=== PATIENT | female | born 1970 | race Caucasian/White ===

== ENCOUNTER 2022-05-19 22:22 | Emergency (ER) | payer MEDICAID, OTHER ==
[~2022-05-19] VITALS: Ht 167.6 cm; Wt 91.0 kg
[2022-05-20 01:06] VITALS: BP 125/71
[2022-05-20 01:25] LABS: Urine Bacteria NONE SEEN /hpf (None Seen); Urine Blood Negative /uL (Negative); Urine Mucus FEW (None Seen); Urine Specific Gravity 1.014 (1.001-1.035); Urine WBC 1 /hpf (0 - 5)
== END 2022-05-20 01:53 | disposition left against medical advice (07) ==
LOC: ER 22:22
DX: R53.1 Weakness (principal); Z53.21 Procedure and treatment not carried out due to patient leaving prior to being seen by health care provider
CPT/HCPCS: 81001

== ENCOUNTER 2023-07-15 16:23 | Emergency (ER) | payer MEDICAID ==
[~2023-07-15] VITALS: Ht 162.6 cm; Wt 98.2 kg
[2023-07-15 17:21] VITALS: BP 146/77; PULSE 87; RESP 20; TEMP 97.2; O2SAT 96
[2023-07-15] MEDS ORDERED: ACET-1080 PO (17:41)
== END 2023-07-15 17:42 | disposition home or self-care (01) ==
LOC: ER 16:23
DX: S81.011A Laceration without foreign body, right knee, initial encounter (principal); F17.210 Nicotine dependence, cigarettes, uncomplicated; Z98.890 Other specified postprocedural states; W22.8XXA Striking against or struck by other objects, initial encounter; Y93.89 Activity, other specified; Y92.89 Other specified places as the place of occurrence of the external cause; Y99.8 Other external cause status
CPT/HCPCS: 12001

== ENCOUNTER 2023-10-12 18:01 | Emergency (ER) | payer MEDICAID ==
[~2023-10-12] VITALS: Ht 162.6 cm; Wt 96.2 kg
[~2023-10-12 18:01] MED LIST: ACET-1080 PO
[2023-10-12 18:20] VITALS: BP 171/81; PULSE 96; RESP 18; O2SAT 96
[2023-10-13] MEDS ORDERED: IBUP-1456 PO (13:37)
[2023-10-13] MEDS ORDERED: CEPH500C PO (13:37)
== END 2023-10-13 03:48 | disposition left against medical advice (07) ==
LOC: ER 18:01
DX: L02.01 Cutaneous abscess of face (principal); Z53.21 Procedure and treatment not carried out due to patient leaving prior to being seen by health care provider

== ENCOUNTER 2023-10-13 12:03 | Emergency (ER) | payer MEDICAID ==
[~2023-10-13] VITALS: Ht 162.6 cm; Wt 96.1 kg
[2023-10-13] MEDS ORDERED: cefTRIAXone SOD 1,000 MG VL ONE (13:25)
[2023-10-13] MEDS ORDERED: cefTRIAXone SOD 1,000 MG VL IM ONE (13:30)
[2023-10-13] MEDS ORDERED: CEPH500C PO (13:37)
[2023-10-13] MEDS ORDERED: IBUP-1456 PO (13:37)
[2023-10-13 13:50] VITALS: BP 155/58; PULSE 78; RESP 14; O2SAT 96
== END 2023-10-13 13:53 | disposition home or self-care (01) ==
LOC: ER 12:03
DX: L72.0 Epidermal cyst (principal); R22.0 Localized swelling, mass and lump, head; F17.210 Nicotine dependence, cigarettes, uncomplicated
CPT/HCPCS: 96372; 99283; J0696

== ENCOUNTER 2024-05-12 20:56 | Emergency (ER) | payer MEDICAID ==
[~2024-05-12] VITALS: Ht 162.6 cm; Wt 94.7 kg
[~2024-05-12 20:56] MED LIST changes: +CEPH500C PO; +IBUP-1456 PO
[2024-05-12] MEDS: HYDROcodone-ACET 10/325MG TAB PO ONE (23:37)
[2024-05-12 23:38] VITALS: BP 123/81; PULSE 86; RESP 19; TEMP 98.5; O2SAT 95
[2024-05-13] MEDS ORDERED: HYDR-4798 PO (00:27)
[2024-05-13] MEDS ORDERED: IBUP-1455 PO (00:27)
[2024-05-13] MEDS ORDERED: MECL25CH20 PO (23:16)
[2024-05-13] MEDS ORDERED: ZOFR4T SL (23:17)
== END 2024-05-13 00:41 | disposition home or self-care (01) ==
LOC: ER 20:56
DX: S16.1XXA Strain of muscle, fascia and tendon at neck level, initial encounter (principal); T81.9XXA Unspecified complication of procedure, initial encounter; F17.210 Nicotine dependence, cigarettes, uncomplicated; W01.0XXA Fall on same level from slipping, tripping and stumbling without subsequent striking against object, initial encounter; Y93.89 Activity, other specified; Y92.89 Other specified places as the place of occurrence of the external cause; Y99.8 Other external cause status
CPT/HCPCS: 72100

== ENCOUNTER 2024-05-13 20:37 | Emergency (ER) | payer MEDICAID ==
[~2024-05-13] VITALS: Ht 162.6 cm; Wt 93.4 kg
[~2024-05-13 20:37] MED LIST changes: +HYDR-4798 PO; +IBUP-1455 PO
[2024-05-13 22:17] LABS: Basophils # (auto) 0 10 ^3/uL (0-0.2); Basophils % (auto) 0.4 % (0.0-2.0); Eosinophils # (auto) 0.3 10 ^3/uL (0-0.8); Eosinophils % (auto) 2.9 % (0.0-7.0); Hematocrit 32.2 % (36.0-46.0); Hemoglobin 10.9 g/dL (12.2-16.2); Lymphocytes # (auto) 2.3 10 ^3/uL (0.4-5.4); Lymphocytes % (auto) 26.4 % (10.0-50.0); Mean Corpuscular Hemoglobin 29.7 pg (28.0-32.0); Mean Corpuscular Hgb Conc. 33.9 g/dL (32.0-36.0); Mean Corpuscular Volume 87.6 fL (80.0-100.0); Monocytes # (auto) 0.7 10 ^3/uL (0-1.3); Monocytes % (auto) 7.7 % (0.0-12.0); Neutrophils # (auto) 5.5 10 ^3/uL (1.6-8.6); Neutrophils % (auto) 62.6 % (37.0-80.0); Nucleated Red Blood Cells % 0.1 %; Red Blood Cells 3.68 10^6/uL (4.0-5.20); Red Cell Distribution Width 16.5 % (11.8-14.3); White Blood Cell 8.8 10^3/uL (4.4-10.8)
[2024-05-13] MEDS: ONDANSETRON HCL 4 MG/2 ML VIAL IM ONE (22:31)
[2024-05-13] MEDS: KETOROLAC TROMETH 60MG/2ML VIAL IM ONE (22:32)
[2024-05-13 22:45] LABS: Alanine Aminotransferase 21 U/L (7-40); Albumin 4.3 g/dL (3.2-4.8); Alkaline Phosphatase 70 U/L (46-116); Anion Gap 7 (5-15); Aspartate Aminotransferase 32 U/L (13-40); BUN/Creatinine Ratio 23.5 (10.0-20.0); Bilirubin, Total 0.2 mg/dL (0.2-1.0); Blood Urea Nitrogen 31 mg/dL (9-23); Calcium 9.7 mg/dL (8.7-10.4); Carbon Dioxide 27 mmol/L (20-30); Chloride 105 mmol/L (98-107); Glucose 94 mg/dL (74-106); Potassium 4.3 mmol/L (3.5-5.1); Sodium 139 mmol/L (136-145)
[2024-05-13] MEDS ORDERED: MECL25CH20 PO (23:16)
[2024-05-13] MEDS ORDERED: ZOFR4T SL (23:17)
[2024-05-13 23:22] LABS: Partial Thromboplastin Time 30.9 SEC (24.5-34.5); Prothrombin Time 10.6 sec (9.3-11.8)
[2024-05-13 23:30] VITALS: BP 99/65; PULSE 87; RESP 18; TEMP 98.9; O2SAT 98
== END 2024-05-13 23:30 | disposition home or self-care (01) ==
LOC: ER 20:37
DX: R51.9 Headache, unspecified (principal); R42 Dizziness and giddiness; R11.2 Nausea with vomiting, unspecified; F17.210 Nicotine dependence, cigarettes, uncomplicated; Z98.890 Other specified postprocedural states; Z79.899 Other long term (current) drug therapy; Z86.2 Personal history of diseases of the blood and blood-forming organs and certain disorders involving the immune mechanism
CPT/HCPCS: 36415; 70450; 71045; 74176; 80053; 82962; 84484; 85025; 85610; 85730; 93005; 96372; 99285; J1885

== ENCOUNTER 2025-02-12 13:24 | Emergency (ER) | payer MEDICAID ==
[~2025-02-12] VITALS: Ht 162.6 cm; Wt 92.4 kg
[~2025-02-12 13:24] MED LIST changes: +MECL25CH20 PO; +ZOFR4T SL
--- NOTE | 2025-02-12 13:42 | ED.PDOC ---
Musculoskeletal HPI Comments 54 year old female presents to the ED with a chief complaint of LT foot pain onset yesterday. Patient was cooking, can of spray oil fell on LT foot. Since then, patient has been experiencing LT foot pain with swelling and redness, pain worsens with walking. Denies any PMHx as well as LOC, head injury, headache, nausea, vomiting, diarrhea, fever, numbness/tingling of extremities. No other symptoms or modifying factors present at this time. Chief Complaint: Lower Extremity Time Seen by MD: 13:37 Primary Care Provider: RACHEL Solis Notes: Medications, Allergies Allergies: Coded Allergies: NO KNOWN ALLERGIES (Unverified , 05/20/22) Home Meds Active Scripts Ibuprofen Micronized (MOTRIN TABLET) 600 Mg Tb, 600 MG PO TID PRN for 3 Days, #9 TAB *Black box warning-NSAIDS can increase risk of [place] & hypertension, GI irritation, ulceration, bleed, perferation. Do not use post cardiac surgery. Use short duration/lowest effective dose. Prov:MARCIA HAZEL MD 02/12/25 Ondansetron Odt 4MG Tab (ZOFRAN PO) 4 Mg Tb, 4 MG SL QIDPRN PRN, #20 TAB ODT TAB-DISSOLVE IN MOUTH, THEN SWALLOW Prov:ABRIL FREY MD 05/13/24 Meclizine Hcl (Meclizine Hcl) 25 Mg Chw, 25 MG PO TIDPRN PRN, #20 TAB.CHEW Prov:ABRIL FREY MD 05/13/24 Hydrocodone-Acetaminophen (Hydrocodone Bitartrate/AC 10-325 mg) 1 Tab Tab, 1 TAB PO Q8HP PRN, #20 TAB Prov:BECKIE GONSALVES PAC 05/13/24 Ibuprofen Micronized (Ibuprofen) 800 Mg Tab, 800 MG PO Q8HP PRN, #20 TAB Prov:BECKIE GONSALVES PAC 05/13/24 Ibuprofen (Ibuprofen) 800 Mg Tab, 1 TAB PO TID, #20 TAB Prov:MARY DUENAS 10/13/23 Cephalexin Monohydrate (Cephalexin) 500 Mg Cap, 1 CAP PO QID, #28 CAP Prov:MARY DUENAS 10/13/23 Acetaminophen (Tylenol 8 Hour Arthritis) 650 Mg Tab, 650 MG PO TID, #24 TAB Prov:MARY DUENAS 07/15/23 Information Source: Patient Mode of Arrival: Ambulatory Location: Left Extremity Location: Foot Timing: Days Prehospital treatment: None Severity: Moderate Able to Move Extremity: Yes Bear Weight: Limited Pain: Moderate Mechanism: Spontaneous Circumstances: Spontaneous Onset of Symptoms: After Trauma Symptoms: Swelling, Pain, Erythema DVT Risk Factors: NONE Associated signs and symptoms: Foot pain Past Medical History PAST MEDICAL HISTORY: Denies Surgical History: Surgical History (Other): RT knee replacement, back surgery OCEAN EXPORT AGENT History: No Pertinent OCEAN EXPORT AGENT History Family History Family History: Reviewed,noncontributory to illness Social History Smoker: Cigarettes Alcohol: Denies ETOH Use Drugs: Marijuana Lives In: Home Constitutional: denies: chills, diaphoresis, fatigue, fever, malaise, sweats, weakness, others EENTM: denies: blurred vision, double vision, ear bleeding, ear discharge, ear drainage, ear pain, ear ringing, eye pain, eye redness, hearing loss, mouth pain, mouth swelling, nasal discharge, nose bleeding, nose congestion, nose pain, photophobia, tearing, throat pain, throat swelling, voice changes, others Respiratory: denies: cough, hemoptysis, orthopnea, SOB at rest, shortness of breath, SOB with excertion, stridor, wheezing, others Cardiovascular: denies: chest pain, dizzy spells, diaphoresis, Dyspnea on exertion, edema, irregular heart beat, left arm pain, lightheadedness, palpitations, PND, syncope, others Gastrointestinal: denies: abdomen distended, abdominal pain, blood streaked bowels, constipated, diarrhea, dysphagia, difficulty swallowing, hematemesis, melena, nausea, poor appetite, poor fluid intake, rectal bleeding, rectal pain, vomiting, others Genitourinary: denies: abnormal vagina bleeding, burning, dyspareunia, dysuria, flank pain, frequency, hematuria, incontinence, pain, , vagina discharge, urgency, others Neurological: denies: dizziness, fainting, headache, left sided numbness, left sided weakness, numbness, paresthesia, pre-existing deficit, right sided numbness, right sided weakness, seizure, speech problems, tingling, tremors, weakness, others Musculoskeletal: reports: others (LT foot pain, swelling, redness); denies: back pain, gout, joint pain, joint swelling, muscle pain, muscle stiffness, neck pain Integumetry: denies: bruises, change in color, change in hair/nails, dryness, laceration, lesions, lumps, rash, wounds, others Allergic/Immunocompromised: denies: Difficulty Healing, Frequent Infections, Hives, Itching, others Hematologic/Lymphatic: denies: anemia, blood clots, easy bleeding, easy bruising, swollen glands, others Endocrine: denies: excessive hunger, excessive sweating, excessive thirst, excessive urination, flushing, intolerance to cold, intolerance to heat, unexpla ined weight gain, unexplained weight loss, others Psychiatric: denies: anxiety, bipolar disorder, depression, hopeless, panic disorder, schizophrenia, sleepless, suicidal, others All Other Systems: Reviewed and Negative Physical Exam General Appearance: Moderate Distress, Normal HEENT: Normal ENT Inspection, Pharynx Normal, TMs Normal Neck: Full Range of Motion, Non-Tender, Normal, Normal Inspection Respiratory: Chest Non-Tender, Lungs Clear, No Accessory Muscle Use, No Respiratory Distress, Normal Breath Sounds Cardiovascular: No Edema, No JVD, No Murmur, No Gallop, Normal Peripheral Pulses, Regular Rate/Rhythm Breast Exam: Deferred Gastrointestinal: No Organomegaly, Non Tender, No Pulsatile Mass, Normal Bowel Sounds, Soft Genitalia: Deferred Pelvic: Deferred Rectal: Deferred Extremities: No calf tenderness, Normal capillary refill, Normal range of motion, Non-tender, No pedal edema, Swelling (Mild swelling of left foot) Musculoskeletal : Apperance: Normal Neurologic: Alert, 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 Was a procedure done?: No Differential Diagnosis EXT Differential Diagnosis: Fracture, Sprain, Strain X-Ray, Labs, Meds, VS Vital Signs Date Time Temp Pulse Resp B/P (MAP) Pulse Ox O2 Delivery O2 Flow Rate FiO2 02/12/25 14:10 18 Room Air* 0 21 02/12/25 13:38 97.6 88 17 141/80 (100) 93 97.6 Current Medications Medications (Trade) Dose Ordered Sig/Seth Route Start Time Stop Time Status Last Admin Acetaminophen/ Hydrocodone Bitart ([place] 10/325MG Tab) 1 tab ONCE ONCE PO 02/12/25 13:45 02/12/25 13:46 DC 02/12/25 14:09 Patient alert. Complaining of left foot pain after object fell. Vitals stable. Answering questions. No sign of distress. Continues to smoke cigarettes. Counseled patient effects of smoking cigarettes 15 minutes. X-ray of the right foot does not show any acute process. Was given [place]. Was given prescription of Motrin. Reviewed her history. Explained to the patient. Was told to follow up with her primary care physician. Was told to come back if there is any problem. Time of 1ST Reevaluation: 14:07 Reevaluation 1ST: Unchanged Patient Education/Counseling: Diagnosis, Treatment, Prognosis Family Education/Counseling: No Family Present Departure 1 Departure Time of Disposition: 13:44 Impression: Primary Impression: Hyperglycemia Additional Impression: Musculoskeletal pain Disposition: 01 HOME / SELF CARE / HOMELESS Condition: Good e-Prescriptions Ibuprofen Micronized (MOTRIN TABLET) 600 Mg Tb 600 MG PO TID PRN for 3 Days, #9 TAB *Black box warning-NSAIDS can increase risk of [place] & hypertension, GI irritation, ulceration, bleed, perferation. Do not use post cardiac surgery. Use short duration/lowest effective dose. Prov: MARCIA HAZEL MD 02/12/25 Discharged With: Self Critical Care Note Critical Care Time?: No Stability Stability form required: No Heart Score Heart Score: Heart Score Response (Comments) Value History N/A 0 EKG N/A 0 Age N/A 0 Risk Factors N/A 0 Troponin N/A 0 Total 0 I personally scribed for MARCIA HAZEL MD ([email or web address]) on 02/12/25 at 13:42. Electronically submitted by Rashmi Mcleod ([email or web address]). MARCIA HAZEL MD Feb 12, 2025 13:42
[2025-02-12] MEDS ORDERED: IBU600T PO (13:45)
[2025-02-12] MEDS: HYDROcodone-ACET 10/325MG TAB PO ONE (14:09)
[2025-02-12 14:10] VITALS: RESP 18
--- NOTE | 2025-02-12 14:13 | DVH ---
EXAM: XY L FOOT 3 VIEW XRAY CLINICAL INDICATION: pain r/o fx TECHNIQUE: XY L FOOT 3 VIEW XRAY Comparison: None FINDINGS/IMPRESSION: There is no evidence of acute fracture or dislocation. The visualized joint space is well maintained. The alignment is anatomical. There is no radiopaque foreign body.
[2025-02-12 14:45] VITALS: BP 143/51; PULSE 89; RESP 18; TEMP 98.4; O2SAT 95
== END 2025-02-12 14:51 | disposition home or self-care (01) ==
LOC: ER 13:24
DX: R73.9 Hyperglycemia, unspecified (principal); M79.18 Myalgia, other site; F12.90 Cannabis use, unspecified, uncomplicated; F17.210 Nicotine dependence, cigarettes, uncomplicated; Z79.1 Long term (current) use of non-steroidal anti-inflammatories (NSAID)
CPT/HCPCS: 73630

== ENCOUNTER 2025-03-17 14:48 | Emergency (ER) | payer MEDICAID ==
[~2025-03-17] VITALS: Ht 162.6 cm; Wt 93.5 kg
[~2025-03-17 14:48] MED LIST changes: +IBU600T PO
--- NOTE | 2025-03-17 15:25 | ED.PDOC ---
History of Present Illness HPI Comments 54-year-old female presents to the ER with prior medical history of DVT on the right leg, prediabetic, sciatica; , right knee replacement, back surgery in the chief complaint of pelvic pain. Patient reports that she tripped over a cord and felt something pull from the pelvic area. Patient reports that she was at work when she started to have sharp pain in the groin area patient notes that she is taking blood thinners as well as not urinated since yesterday. Denies chills, fever, N/V/D, SOB, CP. No other associated symptoms, modifiers, recent injuries or sick contacts present at this time. Chief Complaint: Pelvic Pain Time Seen by MD: 15:10 Primary Care Provider: nafisa Solis Notes: Nurses Notes, Medications, Allergies Allergies: Coded Allergies: NO KNOWN ALLERGIES (Unverified , 05/20/22) Home Meds Active Scripts Ibuprofen Micronized (MOTRIN TABLET) 600 Mg Tb, 600 MG PO TID PRN for 3 Days, #9 TAB *Black box warning-NSAIDS can increase risk of [place] & hypertension, GI irritation, ulceration, bleed, perferation. Do not use post cardiac surgery. Use short duration/lowest effective dose. Prov:MARCIA HAZEL MD 02/12/25 Ondansetron Odt 4MG Tab (ZOFRAN PO) 4 Mg Tb, 4 MG SL QIDPRN PRN, #20 TAB ODT TAB-DISSOLVE IN MOUTH, THEN SWALLOW Prov:ABRIL FREY MD 05/13/24 Meclizine Hcl (Meclizine Hcl) 25 Mg Chw, 25 MG PO TIDPRN PRN, #20 TAB.CHEW Prov:ABRIL FREY MD 05/13/24 Hydrocodone-Acetaminophen (Hydrocodone Bitartrate/AC 10-325 mg) 1 Tab Tab, 1 TAB PO Q8HP PRN, #20 TAB Prov:BECKIE GONSALVES PAC 05/13/24 Ibuprofen Micronized (Ibuprofen) 800 Mg Tab, 800 MG PO Q8HP PRN, #20 TAB Prov:BECKIE GONSALVES PAC 05/13/24 Ibuprofen (Ibuprofen) 800 Mg Tab, 1 TAB PO TID, #20 TAB Prov:MARY DUENAS 10/13/23 Cephalexin Monohydrate (Cephalexin) 500 Mg Cap, 1 CAP PO QID, #28 CAP Prov:MARY DUENAS 10/13/23 Acetaminophen (Tylenol 8 Hour Arthritis) 650 Mg Tab, 650 MG PO TID, #24 TAB Prov:MARY DUENAS 07/15/23 Information Source: Patient Mode of Arrival: EMS Severity: Moderate Timing: Hours Duration: Since onset, Hours Prehospital treatment: None Past Medical History PAST MEDICAL HISTORY: DM (Prediabetic), Denies Past Medical History (Other): DVT to the right leg, sciatica Surgical History: Surgical History (Other): Right knee replacement, back surgery HEAD SAMPLER History: No Pertinent HEAD SAMPLER History Family History Family History: Reviewed,noncontributory to illness, Unknown Social History Smoker: Unknown Alcohol: Unobtainable Drugs: Unknown Lives In: Home Constitutional: denies: chills, diaphoresis, fatigue, fever, malaise, sweats, weakness, others EENTM: denies: blurred vision, double vision, ear bleeding, ear discharge, ear drainage, ear pain, ear ringing, eye pain, eye redness, hearing loss, mouth pain, mouth swelling, nasal discharge, nose bleeding, nose congestion, nose pain, photophobia, tearing, throat pain, throat swelling, voice changes, others Respiratory: denies: cough, hemoptysis, orthopnea, SOB at rest, shortness of breath, SOB with excertion, stridor, wheezing, others Cardiovascular: denies: chest pain, dizzy spells, diaphoresis, Dyspnea on exer tion, edema, irregular heart beat, left arm pain, lightheadedness, palpitations, PND, syncope, others Gastrointestinal: denies: abdomen distended, abdominal pain, blood streaked bowels, constipated, diarrhea, dysphagia, difficulty swallowing, hematemesis, melena, nausea, poor appetite, poor fluid intake, rectal bleeding, rectal pain, vomiting, others Genitourinary: denies: abnormal vagina bleeding, burning, dyspareunia, dysuria, flank pain, frequency, hematuria, incontinence, pain, , vagina discharge, urgency, others Neurological: denies: dizziness, fainting, headache, left sided numbness, left sided weakness, numbness, paresthesia, pre-existing deficit, right sided numbness, right sided weakness, seizure, speech problems, tingling, tremors, weakness, others Musculoskeletal: reports: others (Pelvic pain); denies: back pain, gout, joint pain, joint swelling, muscle pain, muscle stiffness, neck pain Integumetry: denies: bruises, change in color, change in hair/nails, dryness, laceration, lesions, lumps, rash, wounds, others Allergic/Immunocompromised: denies: Difficulty Healing, Frequent Infections, Hives, Itching, others Hematologic/Lymphatic: denies: anemia, blood clots, easy bleeding, easy bruising, swollen glands, others Endocrine: denies: excessive hunger, excessive sweating, excessive thirst, excessive urination, flushing, intolerance to cold, intolerance to heat, unexplained weight gain, unexplained weight loss, others Psychiatric: denies: anxiety, bipolar disorder, depression, hopeless, panic disorder, schizophrenia, sleepless, suicidal, others All Other Systems: Reviewed and Negative Physical Exam General Appearance: Moderate Distress, Normal HEENT: Normal ENT Inspection, Pharynx Normal, TMs Normal Neck: Full Range of Motion, Non-Tender, Normal, Normal Inspection Respiratory: Chest Non-Tender, Lungs Clear, No Accessory Muscle Use, No Respiratory Distress, Normal Breath Sounds Cardiovascular: No Edema, No JVD, No Murmur, No Gallop, Normal Peripheral Pulses, Regular Rate/Rhythm Breast Exam: Deferred Gastrointestinal: No Organomegaly, Non Tender, No Pulsatile Mass, Normal Bowel Sounds, Soft Genitalia: Deferred Pelvic: Deferred Rectal: Deferred Extremities: No calf tenderness, Normal capillary refill, Normal inspection, Normal range of motion, Non-tender, No pedal edema Musculoskeletal : Apperance: Normal Neurologic: Alert, 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 Was a procedure done?: No Differential Dx Considerations may include: Muscle strain Degenerative disc disease X-Ray, Labs, Meds, VS Vital Signs Date Time Temp Pulse Resp B/P (MAP) Pulse Ox O2 Delivery O2 Flow Rate FiO2 5/25/25 15:11 98.2 88 18 131/75 (93) 95 98.2 Patient alert. Complaining of pelvic pain. Vitals stable. Answering questions. Ambulating. No deformity. History of back surgery. Currently on [place]. No leg swelling. No shortness a breath. X-ray of the pelvis does show old surgical injure site as per patient. Patient is aware that there is a screw loose in the surgical site of the lumbar five S1. Pelvis intact. Explained to the patient. Was told to follow up with her primary care physician. Was told to come back if there is any problem. Time of 1ST Reevaluation: 15:40 Reevaluation 1ST: Unchanged Patient Education/Counseling: Diagnosis, Treatment, Prognosis Family Education/Counseling: No Family Present Departure 1 Departure Time of Disposition: 16:50 Impression: Primary Impression: Musculoskeletal pain Additional Impression: Postoperative pain after spinal surgery Disposition: 01 HOME / SELF CARE / HOMELESS Condition: Good Discharged With: Self Critical Care Note Critical Care Time?: No Stability Stability form required: No Heart Score Heart Score: Heart Score Response (Comments) Value History N/A 0 EKG N/A 0 Age N/A 0 Risk Factors N/A 0 Troponin N/A 0 Total 0 I personally scribed for MARCIA HAZEL MD ([email or web address]) on 03/17/25 at 15:25. Electronically submitted by Almas Rose ([email or web address]). MARCIA HAZEL MD March 17, 2025 15:25
--- NOTE | 2025-03-17 16:46 | DVH ---
CLINICAL INDICATION: fall TECHNIQUE: Pelvis AP 3 radiographic views of the spine were obtained. Received 3 views of the lumbar spine. Study mislabeled Comparison: None FINDINGS/IMPRESSION: There is no evidence of acute fracture or dislocation. Pedicle screws and spinal rods in place from L3 through S1. Fracture of 1 of the pedicle screws at S 1. The visualized joint space is well maintained. The alignment is anatomical. There is no radiopaque foreign body. HS:Y
[2025-03-17] MEDS: HYDROcodone-ACET 10/325MG TAB PO ONE (18:06)
[2025-03-17 18:08] VITALS: BP 113/88; PULSE 74; RESP 18; TEMP 98.2; O2SAT 95
--- NOTE | 2025-03-17 21:56 | DVH ---
CLINICAL INDICATION: fall TECHNIQUE: XY PELVIS AP Comparison: None FINDINGS / IMPRESSION: Single AP radiograph of the pelvis demonstrates no osseous or joint abnormality with no fracture or dislocation. Posterior instrumented lumbosacral fusion noted.
== END 2025-03-17 18:15 | disposition home or self-care (01) ==
LOC: ER 14:48
DX: M79.18 Myalgia, other site (principal); G89.18 Other acute postprocedural pain; E11.9 Type 2 diabetes mellitus without complications; Z96.651 Presence of right artificial knee joint; Z86.718 Personal history of other venous thrombosis and embolism
CPT/HCPCS: 72170